=== PATIENT | female | born 1955 | race Caucasian/White ===

== ENCOUNTER 2018-02-07 09:26 | Emergency (ER) | payer MEDICARE, OTHER ==
[2018-02-07] MEDS ORDERED: Famotidine 20 MG TAB ONE (09:49)
[2018-02-07] MEDS ORDERED: hydrOXYzine 25 MG TAB ONE (09:49)
== END 2018-02-07 09:56 | disposition home or self-care (01) ==
LOC: BURERS 09:26
DX: S00.86XA Insect bite (nonvenomous) of other part of head, initial encounter (principal); S30.861A Insect bite (nonvenomous) of abdominal wall, initial encounter; S60.562A Insect bite (nonvenomous) of left hand, initial encounter; S60.561A Insect bite (nonvenomous) of right hand, initial encounter; S80.862A Insect bite (nonvenomous), left lower leg, initial encounter; S80.861A Insect bite (nonvenomous), right lower leg, initial encounter; F31.9 Bipolar disorder, unspecified; Z79.899 Other long term (current) drug therapy; W57.XXXA Bitten or stung by nonvenomous insect and other nonvenomous arthropods, initial encounter
CPT/HCPCS: 99282